=== PATIENT | male | born 1955 | race African-American/Black ===

== ENCOUNTER 2018-09-28 00:49 | Emergency (ER) | payer OTHER ==
--- NOTE | 2018-09-28 01:01 | ED ---
Weakness HPI - General Chief complaint: Weakness Stated complaint: Tremors Time Seen by Provider: 09/28/18 00:59 Source: patient Mode of arrival: ambulatory Limitations: no limitations - History of Present Illness Initial comments: Vignesh is a 62 old -[place] gentleman with a history of hypertension who presents the emergency department today for evaluation of shaking of his left leg and left arm. Patient reports that he was in his usual state of health throughout the day, he went to bed early and woke from his sleep with his left leg shaking, patient reports he's been experiencing this intermittently and thought that it was best of his leg syndrome he was prescribed Lyrica and gabapentin by his primary care physician. Patient reports that he tried to sit up in bed to readjust his legs and then his left arm began shaking and he couldn't control that. Patient reports that this lasted for maybe 45 seconds total. Patient reports it resolved and is feeling better but his encouraged him to come to the ER for evaluation. at bedside also notes that the patient has seemed very forgetful lately she reports that he's been setting stuff down on the house forgetting where it is unable to find his own belongings. The patient was recently diagnosed with prostate cancer and has not made a decision up out his treatment plan, he had initially chose not to tell his family about this diagnosis and been keeping it to himself or the month. thought that perhaps his forgetfulness was due to the stress related to this diagnosis. - Related Data Allergies Allergy/AdvReac Type Severity Reaction Status Date / Time No Known Allergies Allergy Verified 09/28/18 00:58 Review of Systems ROS Statement: Those systems with pertinent positive or pertinent negative responses have been documented in the HPI. ROS Other: All systems not noted in ROS Statement are negative. Past Medical History Past Medical History: Hyperlipidemia, Hypertension Additional Past Medical History / Comment(s): neuropathy, History of Any Multi-Drug Resistant Organisms: None Reported Past Surgical History: Orthopedic Surgery Additional Past Surgical History / Comment(s): left femur, bilat feet repair, scapula C4, C7, left hand trigger finger, Past Psychological History: No Psychological Hx Reported Smoking Status: Current every day smoker Past Alcohol Use History: Occasional Past Drug Use History: None Reported General Exam - General Exam Comments Initial Comments: GENERAL: Patient is well-developed and well-nourished. Patient is nontoxic and well-hydrated and is in no distress. HENT: Normocephalic, Atraumatic. Neck is soft and supple. No significant lymphadenopathy is noted. Broken tooth EYES: The sclera were anicteric and conjunctiva were pink and moist. Extraocular movements were intact and pupils were equal round and reactive to light. Eyelids were unremarkable. PULMONARY: Unlabored respirations. Good breath sounds bilaterally. No audible rales rhonchi or wheezing was noted. CARDIOVASCULAR: There is a regular rate and rhythm without any murmurs gallops or rubs. ABDOMEN: Soft and nontender with normal bowel sounds. SKIN: Skin is clear with no lesions or rashes and otherwise unremarkable. NEUROLOGIC: Patient is alert and oriented x3. Cranial nerves II through XII are grossly intact. Motor and sensory are also intact. Normal speech, volume and content. Symmetrical smile. MUSCULOSKELETAL: Normal extremities with adequate strength and full range of motion. No lower extremity swelling or edema. No calf tenderness. LYMPHATICS: No significant lymphadenopathy is noted PSYCHIATRIC: Normal psychiatric evaluation Limitations: no limitations Course Vital Signs 09/28/18 09/28/18 09/28/18 00:53 01:49 03:01 Temperature 98.0 F 98.6 F 98.3 F Pulse Rate 90 84 78 Respiratory 18 16 16 Rate Blood Pressure 193/109 155/103 158/103 O2 Sat by Pulse 97 98 96 Oximetry Medical Decision Making - Medical Decision Making The patient was seen and evaluated upon arrival to the emergency department Patient's presenting for evaluation of shaking of the left leg followed by shaking of the left arm this lasted approximately 45 seconds patient reports he had no control of the lens at that time patient is no seizure history, on arrival patient is noted to be hypertensive he is quite anxious about being here and admits that he really hates coming to the hospital Labs and CT imaging were ordered Labs resulted in no significant abnormalities CT of the brain reveals likely meningioma measuring 2.7 x 2.8 cm in the right frontotemporal region with surrounding edema, IV Decadron was ordered for his at genic edema These results were discussed in detail to the best of my ability with the patient and his at bedside, I did advise he needs to be transferred to a facility with neurosurgical capabilities for close neurologic monitoring and evaluation. Patient initially declined stating that he like to go home and get some rest he will go to the outside hospital in the morning, however patient's at bedside was able to encourage him at which time he consented to transfer. Patient care was discussed with Dr. Brown at [facility] emergency Department who accepts transfer Patient remained awake alert oriented with a normal gait no focal deficits throughout the remainder of his stay in the emergency department. Patient was transferred to [facility] via ambulance - Lab Data Result diagrams: 09/28/18 01:43 09/28/18 01:43 Lab Results 09/28/18 09/28/18 09/28/18 Range/Units 01:43 01:43 01:43 WBC 4.8 (3.8-10.6) k/uL RBC 4.93 (4.30-5.90) m/uL Hgb 13.5 (13.0-17.5) gm/dL Hct 41.1 (39.0-53.0) % MCV 83.3 (80.0-100.0) fL MCH 27.5 (25.0-35.0) pg MCHC 33.0 (31.0-37.0) g/dL RDW 15.2 (11.5-15.5) % Plt Count 291 (150-450) k/uL Neutrophils % 60 % Lymphocytes % 28 % Monocytes % 8 % Eosinophils % 3 % Basophils % 1 % Neutrophils # 2.9 (1.3-7.7) k/uL Lymphocytes # 1.3 (1.0-4.8) k/uL Monocytes # 0.4 (0-1.0) k/uL Eosinophils # 0.1 (0-0.7) k/uL Basophils # 0.0 (0-0.2) k/uL PT 9.7 (9.0-12.0) sec INR 0.9 (<1.2) APTT 28.6 (22.0-30.0) sec Sodium 138 (137-145) mmol/L Potassium 4.5 (3.5-5.1) mmol/L Chloride 101 (98-107) mmol/L Carbon Dioxide 32 H (22-30) mmol/L Anion Gap 5 mmol/L BUN 18 (9-20) mg/dL Creatinine 0.89 (0.66-1.25) mg/dL Est GFR (CKD-EPI)AfAm >90 (>60 ml/min/1.73 sqM) Est GFR (CKD-EPI)NonAf >90 (>60 ml/min/1.73 sqM) Glucose 156 H (74-99) mg/dL Calcium 9.0 (8.4-10.2) mg/dL Magnesium 2.1 (1.6-2.3) mg/dL Total Bilirubin 0.3 (0.2-1.3) mg/dL AST 20 (17-59) U/L ALT 32 (21-72) U/L Alkaline Phosphatase 112 (38-126) U/L Total Protein 6.7 (6.3-8.2) g/dL Albumin 3.8 (3.5-5.0) g/dL Disposition Clinical Impression: Cerebral edema, Intracranial mass, Focal seizure Disposition: OTHER INSTITUTION NOT DEFINED Condition: Serious Referrals: Debbie Anguiano FNPBC [Primary Care Provider] - 1-2 days - Out of Hospital Transfer - Req. Specs Out of Hospital Transfer - Requested Specifics: Other Emergency Center ([facility])
[2018-09-28 01:52] VITALS: RESP 16
--- NOTE | 2018-09-28 02:08 | CT ---
EXAM: CT Head Without Intravenous Contrast CLINICAL HISTORY: ITS.REASON CT Reason: confusion, shaking of left arm/leg TECHNIQUE: Axial computed tomography images of the head/brain without intravenous contrast. DLP is 1126.4 mGy-cm. This CT exam was performed using one or more of the following dose reduction techniques: automated exposure control, adjustment of the mA and/or kV according to patient size, and/or use of iterative reconstruction technique. COMPARISON: No relevant prior studies available. FINDINGS: There is a calcified mass at the right parietal vertex near junction with frontal lobe abutting the interhemispheric fissure measuring about 2.8 cm AP 2.7 cm transverse and 2.5 cm craniocaudal suspicious for meningioma, example image 50 coronal. Associated mass effect and adjacent decreased attenuation in the underlying right frontoparietal region suggestive of edema. Minimal leftward shift of the interhemispheric fissure adjacent to the mass. Suspect some chronic ischemic changes with age- indeterminate lacunar infarct in region of anterior limb left internal capsule. Likely chronic. No intracranial hemorrhage or other acute intracranial finding. 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 IMPRESSION: There is a calcified mass at the right parietal vertex near junction with frontal lobe abutting the interhemispheric fissure measuring about 2.8 cm AP 2.7 cm transverse and 2.5 cm craniocaudal suspicious for meningioma, example image 50 coronal. Associated mass effect and adjacent edema, as above. Suggest neurosurgical consult. Suspect some chronic ischemic changes with probable chronic lacunar infarct in region of left internal capsule.
[2018-09-28] MEDS ORDERED: DEXAMETHASONE SOD PHOSPHATE 10 MG/ML 1 ML VIAL IV STA (02:30)
[2018-09-28 03:02] VITALS: BP 158/103; PULSE 78; TEMP 98.3
[2018-09-28 03:10] LABS: Basophils % (A) 1 %; Eosinophils # (A) 0.1 k/uL (0-0.7); Eosinophils % (A) 3 %; HCT 41.1 % (39.0-53.0); HGB 13.5 gm/dL (13.0-17.5); Lymphocytes # (A) 1.3 k/uL (1.0-4.8); Lymphocytes % (A) 28 %; MCH 27.5 pg (25.0-35.0); MCV 83.3 fL (80.0-100.0); Mean Platelet Volume 7.4; Monocytes # (A) 0.4 k/uL (0-1.0); Monocytes % (A) 8 %; Neutrophils # (A) 2.9 k/uL (1.3-7.7); Neutrophils % (A) 60 %; Platelet Count 291 k/uL (150-450); RBC 4.93 m/uL (4.30-5.90); RDW 15.2 % (11.5-15.5); WBC 4.8 k/uL (3.8-10.6)
[2018-09-28 03:13] LABS: INR 0.9 (<1.2)
[2018-09-28 03:14] LABS: Partial Thromboplastin Time 28.6 sec (22.0-30.0); Prothrombin Time 9.7 sec (9.0-12.0)
[2018-09-28 03:19] LABS: ALT 32 U/L (21-72); AST 20 U/L (17-59); African American GFR (CKD) >90 (>60 ml/min/1.73 sqM); Albumin 3.8 g/dL (3.5-5.0); Alkaline Phosphatase 112 U/L (38-126); Anion Gap 5 mmol/L; Blood Urea Nitrogen 18 mg/dL (9-20); Carbon Dioxide 32 mmol/L (22-30); Chloride 101 mmol/L (98-107); Glucose 156 mg/dL (74-99); Magnesium 2.1 mg/dL (1.6-2.3); Potassium 4.5 mmol/L (3.5-5.1); Sodium 138 mmol/L (137-145); Total Bilirubin 0.3 mg/dL (0.2-1.3); Total Protein 6.7 g/dL (6.3-8.2)
== END 2018-09-28 03:27 | disposition other institution (70) ==
LOC: EC 00:49
DX: G93.6 Cerebral edema (principal); R90.0 Intracranial space-occupying lesion found on diagnostic imaging of central nervous system; R56.9 Unspecified convulsions; S02.5XXA Fracture of tooth (traumatic), initial encounter for closed fracture; F17.200 Nicotine dependence, unspecified, uncomplicated; Z85.46 Personal history of malignant neoplasm of prostate; X58.XXXA Exposure to other specified factors, initial encounter
CPT/HCPCS: 36415; 80053; 83735; 85025; 85610; 85730; 70450; 99285; 96374; J1100

== ENCOUNTER → 2019-05-04 | Outpatient (CLI) | payer OTHER ==
--- NOTE | 2019-05-04 15:59 | CT ---
EXAMINATION TYPE: CT chest wo con DATE OF EXAM: 05/04/2019 COMPARISON: None HISTORY: Prostate CA CT DLP: 403.2 mGycm. Automated Exposure Control for Dose Reduction was Utilized. TECHNIQUE: CT scan of the thorax is performed without IV contrast. FINDINGS: Lack of intravenous contrast could compromise sensitivity. LUNGS: The lungs are grossly clear, there is no concerning parenchymal mass or nodule identified. Th ere is emphysematous change. Some minimal strand-like densities in the left lower lung likely reflect scarring. There is no pleural effusion or pneumothorax seen. The tracheobronchial tree is patent. MEDIASTINUM: Lack of IV contrast is noted to limit evaluation for mediastinal and especially hilar ad enopathy. There are no definitive greater than 1 cm hilar or mediastinal lymph nodes. No cardiomega ly or pericardial effusion is seen. OTHER: Low-attenuation within the liver may be due to hepatic steatosis. IMPRESSION: Metastatic disease is not evident.
== END | disposition home or self-care (01) ==
LOC: RADCTMAIN 13:57
PROVIDERS: ATTEND Radiology Radiation Oncology
DX: C61 Malignant neoplasm of prostate (principal)
CPT/HCPCS: 71250

== ENCOUNTER → 2019-06-02 | Outpatient (CLI) | payer OTHER ==
[2019-06-02 17:41] LABS: Basophils % (A) 0 %; Eosinophils # (A) 0.1 k/uL (0-0.7); Eosinophils % (A) 2 %; HCT 40.9 % (39.0-53.0); Lymphocytes # (A) 1.3 k/uL (1.0-4.8); Lymphocytes % (A) 29 %; MCH 27.6 pg (25.0-35.0); MCHC 31.8 g/dL (31.0-37.0); MCV 86.9 fL (80.0-100.0); Mean Platelet Volume 8.5; Monocytes # (A) 0.4 k/uL (0-1.0); Monocytes % (A) 10 %; Neutrophils # (A) 2.5 k/uL (1.3-7.7); Neutrophils % (A) 56 %; Platelet Count 450 k/uL (150-450); RBC 4.71 m/uL (4.30-5.90); RDW 13.3 % (11.5-15.5); WBC 4.5 k/uL (3.8-10.6)
[2019-06-03 00:12] LABS: African American GFR (CKD) 83.5 (60.0-200.0); Albumin 4.1 g/dL (3.80-4.90); Albumin/Globulin Ratio 1.64 (1.60-3.17); Anion Gap 8.1 mmol/L (4.00-12.00); BUN/Creat Ratio 18.18 Ratio (12.00-20.00); Calcium 9.1 mg/dL (8.7-10.3); Carbon Dioxide 28.9 mmol/L (21.6-31.8); Globulin 2.5 g/dL (1.6-3.3); Non-African American GFR(CKD) 72.1 (60.0-200.0); Potassium 3.5 mmol/L (3.5-5.5); Total Bilirubin 0.2 mg/dL (0.3-1.2); Total Protein 6.6 g/dL (6.2-8.2)
[2019-06-03 00:20] LABS: Ferritin 114.8 ng/mL (22.0-322.0); T4, Free (Free Thyroxine) 1.3 ng/dL (0.80-1.80)
[2019-06-03 00:39] LABS: % Iron Saturation 13.36 (15.00-50.00); Chol/HDL Ratio 3.13; LDL Cholesterol,Calculated 51.2 mg/dL (0.0-131.0); VLDL Calculation 14.8 mg/dL (5.00-40.00)
== END | disposition home or self-care (01) ==
LOC: LABWHC1 14:21
PROVIDERS: ATTEND Radiology Radiation Oncology
DX: D32.9 Benign neoplasm of meninges, unspecified (principal); E03.2 Hypothyroidism due to medicaments and other exogenous substances; E55.9 Vitamin D deficiency, unspecified; E78.2 Mixed hyperlipidemia; D63.0 Anemia in neoplastic disease; C61 Malignant neoplasm of prostate; R53.82 Chronic fatigue, unspecified; E11.22 Type 2 diabetes mellitus with diabetic chronic kidney disease
CPT/HCPCS: 36415; 80053; 80061; 82306; 82607; 82728; 83540; 83550; 84153; 84403; 84439; 84443; 84481; 85025